=== PATIENT | female | born 1995 | race Caucasian/White ===

== ENCOUNTER 2021-12-25 08:47 | Outpatient (REF) | payer OTHER, SELFPAY ==
--- NOTE | ~2021-12-25 | MR_ITS ---
EXAMINATION: MR BRAIN WITHOUT CONTRAST CLINICAL INFORMATION: Pseudotumor cerebri. Constant headaches and blurred vision. COMPARISON: None. TECHNIQUE: Multiplanar, multisequence imaging of the brain was performed without contrast. FINDINGS: No diffusion abnormalities are identified to suggest an acute infarct. The ventricles are normal in size. No mass effect or midline shift is seen. No brain parenchymal signal abnormality is noted. No extra-axial fluid collections are seen. The brainstem and cerebellum are normal. There is mild flattening of the posterior wall of both globes at the level of the optic discs on axial T2-weighted imaging. The gradient refocused acquisition is normal. The craniovertebral junction, marrow signal, and midline structures are normal. The major intracranial flow voids at the level of the [place] of [place] are preserved. The dural venous sinus flow voids are maintained. The mastoid air cells are well aerated. Mild to moderate ethmoid sinus mucosal thickening noted. MR/MR head/brain wo con IMPRESSION: No acute intracranial process. Normal MRI of the brain. Flattening of the posterior wall of both globes at the level of the optic discs, which may suggest underlying papilledema; correlate with funduscopic evaluation.
== END 2021-12-25 08:48 | disposition home or self-care (01) ==
LOC: HO.MRI 08:47
PROVIDERS: Visit Provider Psychiatry & Neurology Neurology
DX: G93.2 Benign intracranial hypertension (principal)
CPT/HCPCS: 70551

== ENCOUNTER 2022-01-08 09:18 | Day surgery (SDC) | payer OTHER, SELFPAY ==
[2022-01-08] VITALS (7 sets, daily range): BP systolic 109–126; BP diastolic 60–73; PULSE 69–98; RESP 16–18; TEMP 36.6–37; O2SAT 97–98; BMI 34.9
--- NOTE | ~2022-01-08 | FL_ITS ---
EXAMINATION: FL GUIDED LUMBAR PUNCTURE CLINICAL INFORMATION: Chronic headaches, pseudotumor cerebri. Family history of pseudotumor cerebri. COMPARISON: None TECHNIQUE: Following explaining fluoroscopy-guided lumbar puncture procedure, benefits and risks, a written consent was obtained. Patient was placed prone and an optimal site was selected under fluoroscopy. The site was marked, cleaned and draped in usual sterile manner with 2% chlorhexidine solution. Then 1% lidocaine was injected at the puncture site. A 20-gauge long 6 inch needle was inserted from left para midline region intrathecally at the L4-L5 disc level. After removing the stylet and observing fluid return, patient was quickly placed in left lateral decubitus view and opening CSF pressure was obtained. Subsequently fluid was collected in 4 test tubes. Following collection of CSF, stylet was reintroduced and needle withdrawn. Complete hemostasis was achieved at puncture site. Sterile Band-Aid applied postprocedure. Patient tolerated procedure extremely well. FINDINGS: On a single image obtained of the lumbar spine, the vertebral heights, alignment and disc heights are maintained. Opening CSF pressure measured 7 cm of water. Approximately 9.5 mL of clear CSF fluid was collected in 4 test tubes and sent to lab as per referring physician's orders. FLUOROSCOPY TIME: 0.8 minutes DOSE AREA PRODUCT: 15.755 uGy-m2 (microgray-meter squared) FL/FL guided lumbar puncture LP IMPRESSION: Successful fluoroscopy-guided L4-L5 lumbar puncture performed without immediate complications.
[2022-01-08 09:37] LABS: UPreg QC Valid YES; Urine Pregnancy NEGATIVE (NEGATIVE)
[2022-01-08 09:55] LABS: MANUAL DIFF FLAG NO
[2022-01-08 09:57] LABS: Basophils Absolute Auto 0.1 X10*3/uL (0.0-0.2); Eosinophils Absolute Auto 1.1 X10*3/uL (0.0-0.4); Hematocrit 46.1 % (37.0-47.0); Hemoglobin 15.2 g/dl (12.0-16.0); Imm Gran Abs Auto 0.02 X10*3/uL (0.00-0.03); Imm Gran Pct Auto 0.2 % (0.0-0.4); Lymphocytes Absolute Auto 3.2 X10*3/uL (1.2-4.9); Mean Corpuscular Hemoglobin 27.9 pg (27.0-33.0); Mean Corpuscular Volume 84.7 fL (80.0-98.0); Mean Platelet Volume 9.4 fL (9.4-12.3); Monocytes Absolute Auto 0.8 X10*3/uL (0.1-1.2); Monocytes Percent Auto 7.4 % (2-11); Neutrophils Absolute Auto 5.8 x10*3/uL (2.0-8.3); Neutrophils Percent Auto 52.4 % (45-73); Platelet Count 368 X10*3/uL (160-400); Red Blood Count 5.44 X10*6/uL (4.20-5.50); Red Cell Distribution Width 14.2 % (11.0-16.0); White Blood Count 11.1 X10*3/uL (4.8-10.8)
[2022-01-08 10:12] LABS: Prothrombin Time 10.9 SEC (10.0-13.1)
[2022-01-08 10:15] LABS: Partial Thromboplastin Time 36.2 SEC (26.0-36.4)
[2022-01-08 12:48] LABS: CSF Appearance Clear, Colorless; CSF Tube # 1
[2022-01-08 12:58] LABS: Glucose CSF 64 mg/dL
[2022-01-08 13:32] LABS: Appearance CSF CLEAR; CSF Monos 8 %; CSF Tube # 4; Color CSF COLORLESS; Lymphocytes CSF 89 %; Neutrophils CSF 0 %; Red Blood Cell CSF 24 MM*3; White Blood Cell CSF 6 MM*3
[2022-01-08 13:33] LABS: CSF Other Cells % 3 %
== END 2022-01-08 14:05 | disposition home or self-care (01) ==
PROVIDERS: Radiology Diagnostic Radiology; PCP Internal Medicine; Visit Provider Psychiatry & Neurology Neurology
PROC: 009U3ZZ Drainage of Spinal Canal, Percutaneous Approach (ICD-10-PCS; CPT 62270; principal; 2022-01-08 11:00)
DX: G93.2 Benign intracranial hypertension (principal); R51.9 Headache, unspecified; E66.9 Obesity, unspecified; Z68.34 Body mass index [BMI] 34.0-34.9, adult; Z79.899 Other long term (current) drug therapy
CPT/HCPCS: 36415; 62328; 81025; 82945; 84157; 85025; 85610; 85730; 87015; 87070; 87205; 89051